=== PATIENT | female | born 1975 | race Caucasian/White ===

== ENCOUNTER → 2018-03-13 09:03 | Outpatient (REF) | payer OTHER, SELFPAY ==
[2018-03-13 13:28] LABS: Hemoglobin A1C 5.7 % (0.0-7.0)
[2018-03-13 13:39] LABS: Alanine Aminotransferase 28 U/L (12-78); Albumin Level 4.3 gm/dL (3.4-5.0); Albumin/Globulin Ratio 1.3 (1.1-1.8); Alkaline Phosphatase 57 U/L (46-116); Aspartate Amino Transferase 15 U/L (15-37); Bilirubin,Total 0.3 mg/dL (0.2-1.0); Blood Urea Nitrogen 12 mg/dL (7-18); Calcium 9.5 mg/dL (8.5-10.1); Carbon Dioxide 26 mmol/L (21.0-32.0); Chloride 104 mmol/L (98-107); Chol/HDL Ratio 5.5 (1-3.5); Cholesterol 227 mg/dL (140-200); Creatinine,Serum 0.77 mg/dL (0.55-1.02); Estimated Glomerular Filt Rate 83 ml/min (>60); Free T4 (Free Thyroxine) 0.76 ng/dl (0.76-1.46); GFR (African American) 100 ML/MIN (>60); Globulin 3.3 gm/dl (1.3-3.2); Glucose 95 mg/dL (74-106); HDL Cholesterol 41 mg/dL (29-89); LDL Cholesterol 148 mg/dL (0-130); Sodium 139 mmol/L (136-145); Thyroid Stimulating Hormone 2.59 uIU/ml (0.358-3.740); Total Protein,Serum 7.6 gm/dL (6.4-8.2); Triglycerides 190 mg/dL (30-200); VLDL Cholesterol 38 mg/dL (0-40)
[2018-03-13 13:47] LABS: Basophils % 0.6 % (0.1-2.0); Eosinophils # 0.1 K/mm3 (0.0-0.4); Eosinophils % 1.1 % (0.1-12.0); Hematocrit 45.7 % (37.0-47.0); Hemoglobin 14.6 g/dL (12.2-16.2); Lymphocytes # 2.5 K/mm3 (0.7-4.5); Lymphocytes % 34.7 K/mm3 (10-50); Mean Corpuscular HGB Conc 32.1 g/dL (31.8-35.4); Mean Corpuscular Volume 90.6 fl (81-99); Mean Platelet Volume 8.8 fl (7.4-10.4); Monocytes # 0.5 K/mm3 (0.1-1.0); Monocytes % 6.7 % (1.7-9.3); Neutrophils # 4.1 K/mm3 (1.8-7.8); Neutrophils % 56.9 % (37.0-80.0); Platelet Count 247 K/mm3 (142-424); Red Blood Count 5.04 M/mm3 (4.20-5.40); Red Cell Distribution Width 13.1 % (11.5-17.5); White Blood Count 7.2 K/mm3 (4.8-10.8)
[2018-03-14 19:24] LABS: Vitamin D 25 Hydroxy 16.5 ng/mL (30.0-100.0)
== END ==
LOC: LAB 09:03
PROVIDERS: Visit Provider Nurse Practitioner Family
DX: R10.9 Unspecified abdominal pain (principal); R53.83 Other fatigue
CPT/HCPCS: 80053; 80061; 82652; 83036; 84439; 84443; 85025

== ENCOUNTER 2024-09-29 09:21 | Outpatient (CLI) | payer MEDICAID, SELFPAY ==
--- NOTE | 2024-09-29 09:26 | XR_ITS ---
FINAL REPORT CLINICAL HISTORY: left pelvic pain, check Filshie clip placement FINDINGS: PELVIS SERIES 3 views were obtained. There is no acute fracture or dislocation. Visualized joint spaces are normally aligned. Soft tissues are unremarkable. No tubal occlusive device is seen. Pelvic calcifications are likely phleboliths. IMPRESSION: No acute process. No tubal occlusive device seen. Reviewed, Interpreted and Dictated by Antonio Syed MD Transcribed by Alyssa Capps Authenticated and [facility]
== END 2024-09-29 23:59 | disposition home or self-care (01) ==
LOC: RAD 09:23
PROVIDERS: PCP Nurse Practitioner Family; Visit Provider Nurse Practitioner Family
DX: R10.2 Pelvic and perineal pain (principal)
CPT/HCPCS: 72190

== ENCOUNTER 2025-01-01 15:02 | Outpatient (CLI) | payer MEDICAID, SELFPAY ==
--- NOTE | 2025-01-01 | US_ITS ---
PROCEDURE: US TRANSVAGINAL CLINICAL INDICATION: PELVIC PAIN COMPARISON: No exams were available for comparison FINDINGS: Transvaginal sonographic images of the pelvis were obtained. UTERUS: 9.1cm x 5.5 cmx 5.5cm anteverted with a combined endometrial thickness of 10.3mm. The endometrium is trilaminar. LEFT OVARY: 2.4cmx1.7 cmx1.9cm with a volume of 4ml. There is a small follicle measuring 1.2 cm. RIGHT OVARY: 3.2cmx 2.4cmx2.0cm with a volume of 7.6ml. There is a follicle measuring 2.0 cm. Both ovaries are seen and appear normal. Doppler flow to both ovaries are seen. There is no fluid in the cul-de-sac. IMPRESSION: 1. Anteverted uterus normal in shape and size. The endometrium measures 10 mm and is trilaminar. 2. Both ovaries are seen and appear normal. Both ovaries have follicles. 3. No fluid in the cul-de-sac. Dictated by: Mitch Lyons MD 01/07/2025 16:24 Mitch Lyons MD in [place] 01/07/2025 16:24
== END 2025-01-01 23:59 | disposition home or self-care (01) ==
LOC: RAD 15:03
PROVIDERS: PCP Nurse Practitioner Obstetrics & Gynecology; Visit Provider Nurse Practitioner Obstetrics & Gynecology
DX: R10.2 Pelvic and perineal pain (principal)
CPT/HCPCS: 76830

== ENCOUNTER 2025-09-13 17:27 | Emergency (ER) | payer MEDICAID, SELFPAY ==
[2025-09-13 17:31] VITALS: BP 191/100; PULSE 88; RESP 18; TEMP 37.2; O2SAT 99; BMI 28.3
--- OUTSIDE RECORDS SUMMARY | 2025-09-13 17:41 | XMS_ITS | Clinical Summary ---
[facility] [address] [place] [address] Care Team Providers [employer] [facility] Attendant Name Role Phone Unavailable Primary Care Provider Unavailabl e Social History Tobacco Use Types Packs/Day Years Used Date Smoking Tobacco: Never Assessed Abuse Screen Answer Date Recorded Unsafe at Home or Work/School Not on file Feels Threatened by Someone? Not on file 06/2023 Does Anyone Keep You from Co ntacting Others or Doint Things Outside the Home? Not on file 07/22/2023 Physical Sign of Abuse Present Not on file 1 Housing Stability Answer Date Recorded Current Living Arrangements Not on file 06/2023 Potentially Unsafe Housing Conditions Not on cristopher e 07/22/2023 Family and Community Support Answer Oscar e Recorded Help with Day-to-Day Activities Not on file 07/22/2023 Lonely or Isolated Not on file 07/22/2023 Employment Answer Date Recorded Do you want help finding or keeping work or a yan b? Not on file 07/22/2023 Disabilities Answer Date Recorded Concentrating, Remembering, or Making Decisions Difficulty Not on file 07/22/2023 Doing Errands Independently Difficulty Not on fi le 07/22/2023 Education Answer Date Recorded Help with school or training? Not on file Preferred Language Not on file 07/22/2023 Comments Unknown Sex and Gender Information Value Date Recorded Sex Assigned at Not on file Legal Sex Female 1:00 PM EDT Gender Identity Not on file Sexual Orientation Not on file Last Filed Vital Signs Vital Sign Reading Time Taken Comments Blood Pressure 136/84 03/16/2014 10:21 AM EDT Pulse 73 03/16/2014 10:21 AM EDT Temperature 37.1 C (98.8 F) 03/16/2014 10:21 AM EDT Respiratory Rate 16 03/16/2014 10:21 AM EDT Oxygen Saturation 99% 03/16/2014 10:21 AM EDT Inhaled Oxygen Concentration - - Weight 70.3 kg (155 lb 0.1 oz) 03/16/2014 10:21 AM EDT Height 161.3 cm (5' 3.5 ) 03/16/2014 10:21 AM ED T Body Mass Index 27.03 03/16/2014 10:21 AM EDT Plan of Treatment Health Maintenance Due Date Last Done Comments ANNUAL PHYSICAL 1976 Annual Gynecologic Pelvic an d Breast Exam 1976 HEPATITIS C SCREENING 1976 TDAP/TD VACCINES (1 - Tdap) 1995 PAP SMEAR 1997 MAMMOGRAM 2016 COLOGUARD 2021 COLON CANCER SCREENING 5 YEA R SIGMOIDOSCOPY 2021 COLONOSCOPY 2021 COLORECTAL CANCER SCREENING 2021 CT COLONOGRAPHY 2021 FECAL OCCULT BLOOD TEST 2021 FIT Testing (1 year) 2021 INFLUENZA VACCINE 05/14/2025 Pneumococcal Vaccine 0-49 Aged Out No longer eligible based on patient's age to complete this topic
--- NOTE | 2025-09-13 17:52 | ECG_ITS ---
APPROVED REPORT Exam: Resting ECG HR:89 bpm ECG Measurements Heart Rate 89 AXES VA 215 P 72 QRSd 102 QRS 19 QT 368 T 58 QTc 415 Conclusion SINUS RHYTHM WITH FIRST DEGREE AV BLOCK ABNORMAL ECG Electronically signed by : MICHELLE EVANGELISTA, 09/14/2025 17:10:14
--- NOTE | 2025-09-13 17:52 | XR_ITS ---
PROCEDURE INFORMATION: Exam: XR Chest Exam date and time: 09/13/2025 6:01 PM Age: 50 years old Clinical indication: Pain; Chest pressure; Additional info: Trauma, mid sternal chest pain TECHNIQUE: Imaging protocol: Radiologic exam of the chest. Views: 1 view. COMPARISON: No relevant prior studies available. FINDINGS: Lungs: Minimal left basilar opacities. Pleural spaces: No pleural effusion. No pneumothorax. Heart/Mediastinum: No cardiomegaly. Bones/joints: Unremarkable. IMPRESSION: Minimal left basilar opacities, which may represent atelectasis, although aspiration/pneumonia can not be excluded.
--- NOTE | 2025-09-13 17:53 | CT_ITS ---
PROCEDURE INFORMATION: Exam: CTA Chest With Contrast Exam date and time: 09/13/2025 7:34 PM Age: 50 years old Clinical indication: Injury or trauma; Additional info: Trauma, critical injury suspected TECHNIQUE: Imaging protocol: Computed tomographic angiography of the chest with contrast. Exam focused on the arteries. 3D rendering (Not supervised by radiologist): MIP and/or 3D reconstructed images were created by the technologist. Radiation optimization: All CT scans at this facility use at least one of these dose optimization techniques: automated exposure control; mA and/or kV adjustment per patient size (includes targeted exams where dose is matched to clinical indication); or iterative reconstruction. Contrast material: ISO 370; Contrast volume: 80 ml; Contrast route: INTRAVENOUS (IV); COMPARISON: CR XR CHEST PORTABLE 09/13/2025 6:01 PM FINDINGS: Pulmonary arteries: Normal. No pulmonary emboli. Aorta: Negative for thoracic aortic dissection or aneurysm. Thyroid: Heterogeneous thyroid, ultrasound may be considered. Lungs: Mild scarring at the lung apices. There are dependent atelectatic changes bilaterally. No pulmonary contusion or laceration. Pleural spaces: Unremarkable. No pneumothorax. No pleural effusion. Heart: Unremarkable. No cardiomegaly. No pericardial effusion. Lymph nodes: Unremarkable. No enlarged lymph nodes. Diaphragm: Small hiatal hernia. Bones/joints: Thoracic spine is better evaluated on dedicated exam. Soft tissues: Unremarkable. IMPRESSION: No acute abnormality involving the chest.
--- NOTE | 2025-09-13 17:53 | CT_ITS ---
PROCEDURE INFORMATION: Exam: CT Head Without Contrast Exam date and time: 09/13/2025 7:22 PM Age: 50 years old Clinical indication: Injury or trauma; Additional info: Trauma, critical injury suspected TECHNIQUE: Imaging protocol: Computed tomography of the head without contrast. Radiation optimization: All CT scans at this facility use at least one of these dose optimization techniques: automated exposure control; mA and/or kV adjustment per patient size (includes targeted exams where dose is matched to clinical indication); or iterative reconstruction. COMPARISON: No relevant prior studies available. FINDINGS: Brain: No acute intracranial hemorrhage, midline shift, or mass effect. Cerebral ventricles: No ventriculomegaly. Paranasal sinuses: Visualized sinuses are unremarkable. No fluid levels. Mastoid air cells: Visualized mastoid air cells are well aerated. Bones: Unremarkable. No acute fracture. Soft tissues: Unremarkable. IMPRESSION: No acute intracranial findings.
--- NOTE | 2025-09-13 17:53 | CT_ITS ---
PROCEDURE INFORMATION: Exam: CTA Head With Contrast, Arteriography Exam date and time: 09/13/2025 7:31 PM Age: 50 years old Clinical indication: Injury or trauma; Additional info: Trauma, critical injury suspected TECHNIQUE: Imaging protocol: Computed tomographic angiography of the head with contrast. Exam focused on the arteries. 3D rendering (Not supervised by radiologist): MIP and/or 3D reconstructed images were created by the technologist. Radiation optimization: All CT scans at this facility use at least one of these dose optimization techniques: automated exposure control; mA and/or kV adjustment per patient size (includes targeted exams where dose is matched to clinical indication); or iterative reconstruction. Contrast material: ISO 370; Contrast volume: 80 ml; Contrast route: INTRAVENOUS (IV); COMPARISON: CT HEAD/BRAIN WO CON 09/13/2025 7:22 PM FINDINGS: ANTERIOR CIRCULATION: Right internal carotid artery: Intracranial segment is patent with no significant stenosis. No aneurysm. Right middle cerebral artery: No occlusion or significant stenosis. No aneurysm. Right anterior cerebral artery: No occlusion or significant stenosis. No aneurysm. Left internal carotid artery: Intracranial segment is patent with no significant stenosis. No aneurysm. Left middle cerebral artery: No occlusion or significant stenosis. No aneurysm. Left anterior cerebral artery: No occlusion or significant stenosis. No aneurysm. POSTERIOR CIRCULATION: Right vertebral artery: No occlusion or significant stenosis. No aneurysm. Left vertebral artery: No occlusion or significant stenosis. No aneurysm. Basilar artery: No occlusion or significant stenosis. No aneurysm. Right posterior cerebral artery: No occlusion or significant stenosis. No aneurysm. Left posterior cerebral artery: No occlusion or significant stenosis. No aneurysm. Brain: No definite mass, mass effect, or midline shift. Cerebral ventricles: No ventriculomegaly. Bones/joints: Unremarkable. No acute fracture. Soft tissues: Unremarkable. IMPRESSION: No large vessel occlusion or flow-limiting stenosis. PROCEDURE INFORMATION: Exam: CTA Neck With Contrast Exam date and time: 09/13/2025 7:31 PM Age: 50 years old Clinical indication: Injury or trauma; Additional info: Trauma, critical injury suspected TECHNIQUE: Imaging protocol: Computed tomographic angiography of the neck with contrast. Exam focused on the cervical segments of the vasculature. 3D rendering (Not supervised by radiologist): MIP and/or 3D reconstructed images were created by the technologist. Radiation optimization: All CT scans at this facility use at least one of these dose optimization techniques: automated exposure control; mA and/or kV adjustment per patient size (includes targeted exams where dose is matched to clinical indication); or iterative reconstruction. Contrast material: ISO 370; Contrast volume: 80 ml; Contrast route: INTRAVENOUS (IV); COMPARISON: CT CERVICAL SPINE WO CON 09/13/2025 7:24 PM FINDINGS: Right common carotid artery: No stenosis. No dissection or occlusion. Right internal carotid artery: No stenosis of the extracranial segment. No dissection or occlusion. Right external carotid artery: No occlusion or stenosis of the origin. Left common carotid artery: No stenosis. No dissection or occlusion. Left internal carotid artery: No stenosis of the extracranial segment. No dissection or occlusion. Left external carotid artery: No occlusion or stenosis of the origin. Right vertebral artery: No stenosis. No dissection or occlusion. Left vertebral artery: No stenosis. No dissection or occlusion. Soft tissues: Unremarkable. Bones/joints: No acute fracture. Degenerative changes. IMPRESSION: No flow-limiting stenosis or occlusion. No dissection. REFERENCES: NASCET CRITERIA. The degree of stenosis in the cervical segment of the internal carotid artery is based on NASCET criteria. Normal is no stenosis. Mild is less than 50% stenosis. Moderate is 50-69% stenosis. Severe is 70% to 99% stenosis. Total occlusion is no detectable patent lumen.
--- NOTE | 2025-09-13 17:53 | CT_ITS ---
PROCEDURE INFORMATION: Exam: CT Cervical Spine Without Contrast Exam date and time: 09/13/2025 7:24 PM Age: 50 years old Clinical indication: Injury or trauma; Additional info: Trauma, critical injury suspected TECHNIQUE: Imaging protocol: Computed tomography of the cervical spine without contrast. Radiation optimization: All CT scans at this facility use at least one of these dose optimization techniques: automated exposure control; mA and/or kV adjustment per patient size (includes targeted exams where dose is matched to clinical indication); or iterative reconstruction. COMPARISON: CT HEAD/BRAIN WO CON 09/13/2025 7:22 PM FINDINGS: Bones: Cervical vertebrae normal in height. No acute fracture. Mild right lateral tilt. Maintained craniocervical junction. Multilevel degenerative changes. Varying degrees of neural foraminal narrowing. No severe spinal canal stenosis. Lungs: Lung apices are normal. Soft tissues: Unremarkable. IMPRESSION: No acute osseous findings.
--- NOTE | 2025-09-13 17:53 | CT_ITS ---
PROCEDURE INFORMATION: Exam: CTA Abdomen and Pelvis With Contrast Exam date and time: 09/13/2025 7:34 PM Age: 50 years old Clinical indication: Injury or trauma; Additional info: Trauma, critical injury suspected TECHNIQUE: Imaging protocol: Computed tomographic angiography of the abdomen and pelvis with contrast. Exam focused on the arteries. 3D rendering (Not supervised by radiologist): MIP and/or 3D reconstructed images were created by the technologist. Radiation optimization: All CT scans at this facility use at least one of these dose optimization techniques: automated exposure control; mA and/or kV adjustment per patient size (includes targeted exams where dose is matched to clinical indication); or iterative reconstruction. Contrast material: ISO 370; Contrast volume: 80 ml; Contrast route: INTRAVENOUS (IV); COMPARISON: CR XR PELVIS MIN 3V 09/29/2024 9:31 AM FINDINGS: Aorta: No aortic aneurysm. No aortic dissection. Celiac and mesenteric arteries: No occlusion or significant stenosis. Renal arteries: No occlusion or significant stenosis. Right iliac arteries: No occlusion or significant stenosis. Left iliac arteries: No occlusion or significant stenosis. Veins: Phleboliths within the pelvis. Liver: No mass. Gallbladder and biliary ducts: Unremarkable. No calcified stones. No ductal dilation. Pancreas: Unremarkable. No mass. No ductal dilation. Spleen: There is metallic clip at the left upper quadrant adjacent to the spleen. Adrenal glands: Unremarkable. No mass. Kidneys and ureters: Bilateral renal excretion of contrast material. Small right renal hypodensity is too small to characterize. No acute renal injury. Stomach and bowel: Unremarkable. No obstruction. No mucosal thickening. Appendix: No evidence of appendicitis. Intraperitoneal space: Unremarkable. No free air. No significant fluid collection. Lymph nodes: Unremarkable. No enlarged lymph nodes. Urinary bladder: Contrast material within the urinary bladder. Reproductive: Prominent uterus. Bones/joints: Mild acute superior endplate compression fracture at L2 with 10% loss of superior endplate height. Soft tissues: Contusion involving the left lower quadrant anterior body wall. There is fat containing umbilical hernia. IMPRESSION: 1. 10% superior endplate compression fracture at L2, acute. 2. Contusion involving the left lower abdominal body wall. 3. No evidence of acute visceral injury. 4. Nonemergent findings as above.
--- NOTE | 2025-09-13 17:53 | CT_ITS ---
PROCEDURE INFORMATION: Exam: CT Thoracic Spine Without Contrast Exam date and time: 09/13/2025 7:26 PM Age: 50 years old Clinical indication: Injury or trauma; Additional info: Trauma, critical injury suspected TECHNIQUE: Imaging protocol: Computed tomography of the thoracic spine without contrast. Radiation optimization: All CT scans at this facility use at least one of these dose optimization techniques: automated exposure control; mA and/or kV adjustment per patient size (includes targeted exams where dose is matched to clinical indication); or iterative reconstruction. COMPARISON: CT CERVICAL SPINE WO CON 09/13/2025 7:24 PM FINDINGS: Bones/joints: Vertebral body height and AP alignment is preserved. Mild prevertebral osteophytosis. Low-level facet joint degenerative change. No acute thoracic spine fracture. Soft tissues: Unremarkable. Lungs: Lungs are better evaluated on dedicated CT chest. IMPRESSION: No acute thoracic spine fracture.
--- NOTE | 2025-09-13 17:53 | CT_ITS ---
PROCEDURE INFORMATION: Exam: CT Lumbar Spine Without Contrast Exam date and time: 09/13/2025 7:28 PM Age: 50 years old Clinical indication: Injury or trauma; Additional info: Trauma, critical injury suspected TECHNIQUE: Imaging protocol: Computed tomography of the lumbar spine without contrast. Radiation optimization: All CT scans at this facility use at least one of these dose optimization techniques: automated exposure control; mA and/or kV adjustment per patient size (includes targeted exams where dose is matched to clinical indication); or iterative reconstruction. COMPARISON: CT THORACIC SPINE WO CON 09/13/2025 7:26 PM FINDINGS: Bones/joints: Mild dextroconvex curvature. There is superior endplate compression fracture at L2 with 10% loss of height. No osseous retropulsion. Remainder demonstrates preserved height and AP alignment. Mild prevertebral osteophytosis. Bilateral facet joint degenerative change. Soft tissues: Unremarkable. IMPRESSION: 10% superior endplate compression fracture at L2, likely acute. No significant osseous retropulsion.
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
[2025-09-13 17:58] VITALS: BP 151/91; PULSE 87; RESP 21; O2SAT 97
[2025-09-13 18:04] VITALS: BP 170/82; PULSE 88; RESP 18; O2SAT 99
[2025-09-13 18:12] LABS: Hematocrit 37.0 % (37.0-47.0); Hemoglobin 12.3 g/dL (12.2-16.2); Immature Granulocytes % 0.6 %; Mean Corpuscular HGB Conc 33.2 g/dL (31.8-35.4); Mean Corpuscular Hemoglobin 27.5 pg (27.0-31.2); Mean Corpuscular Volume 82.8 fl (81-99); Nucleated Red Blood Cells % 0 %; Platelet Count 295 K/mm3 (142-424); Red Blood Count 4.47 M/mm3 (4.20-5.40); Red Cell Distribution Width-SD 42.3 fL; White Blood Count 12.2 K/mm3 (4.8-10.8)
[2025-09-13 18:18] LABS: HCG Qualitative, Serum Negative (Negative)
[2025-09-13 18:19] LABS: Activated Partial Thrombo Time 24.0 seconds (22.8-30.6); INR 0.95 (0.9-1.1); Prothrombin Time 10.6 seconds (10.1-12.5)
[2025-09-13 18:20] LABS: Alanine Aminotransferase 36 U/L (12-78); Albumin Level 4.6 g/dl (3.5-5.0); Albumin/Globulin Ratio 1.4 (1.1-1.8); Alkaline Phosphatase 57 U/L (38-126); Anion Gap 8.1 mEq/L (5-15); Aspartate Amino Transferase 39 U/L (14-36); Bilirubin,Total 0.7 mg/dl (0.2-1.3); Blood Urea Nitrogen 10 mg/dl (7-17); Calcium 9.2 mg/dl (8.4-10.2); Carbon Dioxide 25 mmol/L (22.0-30.0); Chloride 103 mmol/L (98-107); Creatinine Clearance Estimated 118 mL/min (50-200); Creatinine,Serum 0.70 mg/dl (0.52-1.04); Estimated Glomerular Filt Rate 89 ml/min (>60); GFR (African American) 108 ML/MIN (>60); Globulin 3.2 g/dL (1.3-3.2); Glucose 105 mg/dl (74-100); Lipase 148 U/L (23-300); Potassium 4.1 mmoL/L (3.5-5.1); Sodium 132 mmol/L (136-145); Total Protein,Serum 7.8 g/dl (6.3-8.2)
[2025-09-13 18:31] VITALS: BP 173/113; PULSE 86; RESP 15; O2SAT 98
[2025-09-13 18:38] LABS: Troponin I < 0.01 ng/ml (0.00-0.034)
[2025-09-13 19:24] VITALS: BP 173/113; PULSE 85; RESP 19; O2SAT 97
[2025-09-13] MEDS: IOPAMIDOL-370 (76%);100ML BOTTLE 160 ML IV (19:28)
[2025-09-13] MEDS: 0.9 % SODIUM CHLORIDE 50 ML VIAL 100 ML IV (19:28)
[2025-09-13] MEDS: SODIUM CHLORIDE 0.9% 10ML SYR (RAD ONLY) 10 ML IV (19:28)
[2025-09-13 19:39] LABS: Microscopic, Urine URINE MICROSCOPIC (MICROSCOPIC)
[2025-09-13 19:41] LABS: Bilirubin,Urine Negative (Negative); Color,Urine YELLOW (Yellow); Glucose,Urine (UA) Negative (Negative); Ketones,Urine Negative (Negative); Leukocyte Esterase,Urine Negative (Negative); PH,Urine 7.0 (5.0-8.5); Protein,Urine Negative (Negative); Specific Gravity, Urine <= 1.005 (1.005-1.030); Urobilinogen,Urine 0.2 EU/dl (0.2)
[2025-09-13 21:02] VITALS: BP 169/104; PULSE 94; RESP 18; TEMP 37.2; O2SAT 97
== END 2025-09-13 21:07 | disposition home or self-care (01) ==
PROVIDERS: Emergency Provider Student in an Organized Health Care Education/Training Program
DX: S32.020A Wedge compression fracture of second lumbar vertebra, initial encounter for closed fracture (principal); R07.89 Other chest pain; R06.02 Shortness of breath; S30.11XA Contusion of abdominal wall, initial encounter; V47.5XXA Car driver injured in collision with fixed or stationary object in traffic accident, initial encounter
CPT/HCPCS: 70450; 70496; 70498; 71045; 71275; 72125; 72128; 72131; 74174; 80053; 81001; 83690; 84484; 84703; 85025; 85610; 85730; 93005; 99285; Q9967